=== PATIENT | female | born 2000 | race Asian ===

== ENCOUNTER 2018-11-02 06:00 | Day surgery (SDC) | payer BC ==
[2018-10-29 14:07] LABS: BASOPHILS # (AUTO) 0.1 K/uL (0.0-0.2); BASOPHILS % (AUTO) 1.9 % (0.0-2.0); EOSINOPHILS # (AUTO) 0.1 K/uL (0.0-0.4); EOSINOPHILS % (AUTO) 1.5 % (0.0-4.0); HEMATOCRIT 34.9 % (36-48); HEMOGLOBIN 10.7 g/dL (12.0-16.0); LYMPHOCYTES # (AUTO) 1.9 K/uL (1.0-5.5); LYMPHOCYTES % (AUTO) 41.3 % (20.5-51.5); MEAN CORPUSCULAR HEMOGLOBIN 22 pg (27-31); MEAN CORPUSCULAR HGB CONC 31 % (32-36); MEAN CORPUSCULAR VOLUME 71 fL (79.0-98.0); MONOCYTES # (AUTO) 0.4 K/uL (0.0-1.0); NEUTROPHILS # (AUTO) 2.1 K/uL (1.8-7.7); NEUTROPHILS % (AUTO) 46.3 % (40.0-70.0); PLATELET COUNT (AUTO) 448 K/uL (130-430); RED BLOOD CELL COUNT(AUTO) 4.91 MIL/uL (4.2-6.2); RED CELL DISTRIBUTION WIDTH 16.3 % (9.0-15.0); WHITE BLOOD COUNT (AUTO) 4.6 K/uL (4.5-11.0)
[2018-10-29 14:43] LABS: ALBUMIN 4.1 g/dL (3.4-4.8); CALCIUM 9.2 mg/dL (8.4-11.0); CREATININE 0.77 mg/dL (0.55-1.30); POTASSIUM 5.1 mmol/L (3.5-5.1); TOTAL BILIRUBIN 0.5 mg/dL (0.0-1.0)
[~2018-11-02] VITALS: Ht 157.5 cm; Wt 49.9 kg
[2018-11-02 06:31] LABS: HCG,QUAL RESULT NEGATIVE (NEGATIVE)
[2018-11-02] MEDS ORDERED: LR 1,000 ML IV SCH (08:41)
[2018-11-02] MEDS ORDERED: HYDROmorphone 1 MG INJ. 1 MG/ML AMPUL IVP PRN ×2 (08:45)
[2018-11-02] MEDS ORDERED: ONDANSETRON HCL 4 MG/2 ML VIAL IVP PRN (08:45)
[2018-11-02] MEDS ORDERED: HYDROmorphone 2 MG/ML VIAL IVP PRN (08:45)
[2018-11-02] MEDS ORDERED: METOCLOPRAMIDE HCL 10 MG/2 ML VIAL IVP PRN (08:45)
[2018-11-02] MEDS ORDERED: fentaNYL CITRATE 250 MCG/5 ML AMP ONE (09:15)
[2018-11-02] MEDS ORDERED: KETOROLAC TROMETHAMINE 30 MG VIAL ONE (09:15)
[2018-11-02] MEDS ORDERED: NS IRRIG SOLN 1000 ML IR ONE (09:15)
[2018-11-02] MEDS ORDERED: MIDAZOLAM HCL 5 MG/ML VIAL (VERSED) IV ONE (09:15)
[2018-11-02] MEDS ORDERED: LR 1,000 ML IV.SOLN IV ONE (09:15)
[2018-11-02] MEDS ORDERED: PROPOFOL 200MG/ 20ML VIAL (DIPRIVAN) IV ONE (09:15)
[2018-11-02] MEDS ORDERED: DEXAMETHASONE SOD PHOSPHATE 4 MG/ML VIAL ONE (09:15)
[2018-11-02] MEDS ORDERED: ONDANSETRON HCL 4 MG/2 ML VIAL ONE ×2 (09:15→12:11)
[2018-11-02] MEDS ORDERED: SEVOFLURANE 15 MIN GAS INH ONE (09:15)
[2018-11-02] MEDS ORDERED: HYDROmorphone 1 MG INJ. 1 MG/ML AMPUL ONE (09:53)
[2018-11-02 10:15] VITALS: BP_SYST 110
== END 2018-11-02 13:10 | disposition home or self-care (01) ==
LOC: SDS 06:00 → SMU 06:00 → SDS 13:10
PROVIDERS: ATTEND Otolaryngology
DX: R22.1 Localized swelling, mass and lump, neck (principal); L90.5 Scar conditions and fibrosis of skin; D63.8 Anemia in other chronic diseases classified elsewhere
CPT/HCPCS: 11421; 12041; 36415; 80053; 84703; 85025; 88305; J1100; J1170; J1885; J2250; J2405; J2704; J3010; J7120

== ENCOUNTER 2021-04-09 15:40 | Emergency (ER) | payer BC, SELFPAY ==
[~2021-04-09] VITALS: Ht 157.5 cm; Wt 45.4 kg
[2021-04-09 15:50] VITALS: BP_SYST 123
--- NOTE | 2021-04-09 16:00 | NUR ---
Patient to ER TENT 1 to gown for evaluation. Side rails up.
--- NOTE | 2021-04-09 16:10 | NUR ---
PT C/O FEVER WITH COVID + RESULTS
--- NOTE | 2021-04-09 16:15 | NUR ---
ER at bedside examining patient.
[2021-04-09 17:15] VITALS: BP_SYST 123
[2021-04-09] MEDS ORDERED: KETOROLAC TROMETHAMINE 30 MG VIAL IM ONE (17:15)
--- NOTE | 2021-04-09 17:15 | NUR ---
Patient LEFT W/O written and verbal discharge instructions Patient in stable condition. ID arm band removed. NO Rx given.
[2021-04-09] MEDS ORDERED: ONDA-8 TL (17:17)
[2021-04-09] MEDS ORDERED: NAPR-688 PO (17:17)
== END 2021-04-09 17:15 | disposition home or self-care (01) ==
LOC: SED 15:40
DX: U07.1 COVID-19 (principal); Z79.899 Other long term (current) drug therapy
CPT/HCPCS: 99283; J1885